=== PATIENT | female | born 1990 | race Caucasian/White ===

== ENCOUNTER 2024-02-23 12:38 | Emergency (ER) | payer BC ==
[~2024-02-23] VITALS: Ht 162.6 cm; Wt 142.4 kg
[2024-02-23] VITALS (9 sets, daily range): BP systolic 82–150; BP diastolic 55–94
[2024-02-23] MEDS ORDERED: ONDANSETRON HCl 4 MG/2 ML SDV IV STA (12:50)
[2024-02-23] MEDS ORDERED: SODIUM CHLORIDE 0.9% 1,000 ML IV STA (12:50)
[2024-02-23 13:19] LABS: URINE BILIRUBIN - DIPSTICK Negative (NEGATIVE); URINE BLOOD DIPSTICK Negative (NEGATIVE); URINE GLUCOSE - DIPSTICK Negative (NEGATIVE); URINE KETONE Negative (NEGATIVE); URINE LEUK ESTERASE Negative (NEGATIVE); URINE NITRITE - DIPSTICK Negative (Negative); URINE PROTEIN - DIPSTICK Negative (NEG-TRACE); URINE SPECIFIC GRAVITY 1.025; URINE UROBILINOGEN - DIPSTICK 0.2 E.U./dL (0.2)
[2024-02-23 13:19] LABS: BASO% 0.6 % (0-3); EOS% 1.9 % (0-8); HEMOGLOBIN 12.8 g/dl (12.0-16.0); IMMATURE GRANULOCYTES 0.3 % (0.0-5.0); LYMPH% 18.8 % (15-41); MEAN CELL VOLUME 86.6 fL CALC (80.0-100.0); MEAN CORPUSCULAR HGB 29.2 pG CALC (26.0-32.0); MEAN CORPUSCULAR HGB CONC 33.7 g/dL CAL (32.0-36.0); MONO% 6.2 % (2-13); NEUT# 7.63 thou/uL (2.00-7.15); NEUT% 72.2 % (42-76); RED BLOOD COUNT 4.39 mill/uL (4.20-5.60); RED CELL DISTRI WIDTH 13.1 % (11.5-15.5)
[2024-02-23 13:22] LABS: URINE COLOR Yellow
[2024-02-23 13:48] LABS: ALBUMIN 3.9 g/dL (3.2-5.0); BILIRUBIN, TOTAL 0.7 mg/dL (0.02-1.3); CREATININE 0.4 mg/dL (0.5-1.0); POTASSIUM 4.6 mmol/l (3.5-5.1)
[2024-02-23] MEDS ORDERED: ZOFRAN4 MG/TAB PO (16:11)
== END 2024-02-23 16:22 | disposition home or self-care (01) | DRG 833 ==
LOC: ED 12:38
PROVIDERS: Nurse Practitioner
DX: O26.899 Other specified pregnancy related conditions, unspecified trimester (principal); R10.9 Unspecified abdominal pain; Z3A.00 Weeks of gestation of pregnancy not specified